=== PATIENT | female | born 1955 | race Caucasian/White ===

== ENCOUNTER 2016-08-02 11:23 | Emergency (ER) | payer SELFPAY ==
[~2016-08-02] VITALS: Wt 87.5 kg
[2016-08-02] MEDS ORDERED: ACET1TAB40 PO (12:25)
[2016-08-02] MEDS ORDERED: GENT5DRO28 RIGHT EYE (12:25)
--- NOTE | 2016-08-02 12:29 | ERD ---
ER Documentation Chief Complaint Date/Time DATE: 08/02/16 TIME: 12:27 Chief Complaint right eye pain and drainage x4days HPI This 61-year-old female complains of right eye pain and irritation for last 4 days. It started while she is sleeping. She denies any contact lenses. She denies any visual field deficits or visual changes except for some mild photophobia due to pain. She denies any cough, shortness of breath or chest pain. ROS All systems reviewed and are negative except as per history of present illness. Medications Home Meds Active Scripts Acetaminophen with Codeine (Acetaminophen-Cod #3 Tablet) 1 Each Tablet, 1 TAB PO Q6H, #12 TAB Prov:CONNIE MARCIAL MD 08/02/16 Gentamicin Sulfate* (Gentamicin Sulfate* Ophth) 0.3% - 5 Ml Drops, 1 DROP RIGHT EYE Q4 for 7 Days, EA Prov:CONNIE MARCIAL MD 08/02/16 Allergies Allergies: Coded Allergies: No Known Allergy (Unverified , 08/02/16) PMhx/Soc Medical and Surgical Hx: pt denies Medical Hx, pt denies Surgical Hx Hx Alcohol Use: No Hx Substance Use: No Hx Tobacco Use: No Physical Exam Vitals Vital Signs Date Time Temp Pulse Resp B/P Pulse Ox O2 Delivery O2 Flow Rate FiO2 08/02/16 11:25 97.0 83 20 179/108 97 Physical Exam Const: [] Alert, [id number]. Head: Atraumatic Eyes: Normal Conjunctiva. There is approximately 2 mm corneal ulcer on the cornea. The chambers appears normal. PERRLA and extraocular movements intact. Visual acuity is 20/30 bilaterally. ENT: Normal External Ears, Nose and Mouth. Neck: Full range of motion..~ No meningismus. Resp: Clear to auscultation bilaterally Cardio: Regular rate and rhythm, no murmurs Abd: Soft, non tender, non distended. Normal bowel sounds Skin: No petechiae or rashes Back: No midline or flank tenderness Ext: No cyanosis, or edema Neur: Awake and alert Psych: Normal Mood and Affect Results 24 hrs Current Medications Medications (Trade) Dose Ordered Sig/Jeff Route PRN Reason Start Time Stop Time Status Last Admin Dose Admin Tetracaine HCl (Tetracaine 0.5% Oph) 1 drop ONCE ONCE RIGHT EYE 08/02/16 12:30 1/6/17 12:31 Fluorescein Sodium (Nddge-Y-Mkixm) 1 strip ONCE ONCE RIGHT EYE 08/02/16 12:30 08/02/16 12:31 Gentamicin Sulfate (Gentamicin 0.3% Oph Drop) 1 drop ONCE ONCE RIGHT EYE 08/02/16 12:30 08/02/16 12:31 08/02/16 12:16 Ibuprofen (Motrin) 600 mg ONCE ONCE PO 08/02/16 12:30 08/02/16 12:31 Procedures/MDM Patient presents with signs and symptoms of a small corneal ulcer on the anterior cornea centrally. She will be treated with gentamicin ophthalmic solution, Tylenol 3 and instructions to follow-up with ophthalmology this week. She should return for visual field deficits, fevers, pain with eye movements, facial swelling, new or worsening symptoms with primary doctor this week. Signs and symptoms are not suggestive of acute blood,, retinal artery ischemia, arthritis, orbital cellulitis. There is no evidence of foreign body or dendritic lesions either. Departure Diagnosis: Primary Impression: Corneal ulcer of right eye Condition: Stable Patient Instructions: Corneal Ulcer Referrals: [facility] Hours: Mon - Fri 9:00 AM - 5:00 PM Additional Instructions: Va al [place] doctor/ specialista para mas evaluacon en el proximo torres. posiblemente necesita autorizado de [place] doctor primario para specialista. Regresa para fiebre, o mas o nueva simptomas. CONNIE MARCIAL MD Aug 02, 2016 12:28
[2016-08-02] MEDS ORDERED: FLUORESCEIN STRIP RIGHT EYE ONE (12:30)
[2016-08-02] MEDS ORDERED: IBUPROFEN 600 MG TAB PO ONE (12:30)
[2016-08-02] MEDS ORDERED: GENTAMICIN 0.3% 5 ML OPH RIGHT EYE ONE (12:30)
[2016-08-02] MEDS ORDERED: TETRACAINE 0.5% 15 ML OPH RIGHT EYE ONE (12:30)
== END 2016-08-02 13:30 | disposition home or self-care (01) ==
LOC: FTE 11:23
DX: H16.001 Unspecified corneal ulcer, right eye (principal)
CPT/HCPCS: 99284

== ENCOUNTER 2016-12-29 07:48 | Emergency (ER) | payer OTHER ==
[~2016-12-29] VITALS: Wt 72.7 kg
[~2016-12-29 07:48] MED LIST: ACET1TAB40 PO; GENT5DRO28 RIGHT EYE
[2016-12-29] MEDS ORDERED: LIDOCAINE/MYLANTA 40 ML BTL PO STA (07:56)
[2016-12-29] MEDS ORDERED: KETOROLAC 15 MG INJ IV STA (07:56)
[2016-12-29] MEDS ORDERED: ONDANSETRON 4 MG INJ IV STA (07:56)
[2016-12-29] MEDS ORDERED: SOD CHLORIDE 0.9% 500 ML IV STA (07:56)
[2016-12-29] MEDS ORDERED: BELLADONNA/PHENOBARBITAL TAB PO STA (07:56)
[2016-12-29 08:28] LABS: ADD SCAN DIFF NO
[2016-12-29 08:34] LABS: BASOPHILS % 0.1 % (0.0-2.0); HEMATOCRIT 33.9 % (37.0-47.0); HEMOGLOBIN 10.9 g/dl (12.0-16.0); LYMPHOCYTES # 0.9 10^3/ul (0.8-2.9); LYMPHOCYTES % 11.4 % (15.0-51.0); MEAN CORPUSCULAR HEMOGLOBIN 26.8 pg (29.0-33.0); MEAN CORPUSCULAR HGB CONC 32.2 g/dl (32.0-37.0); MEAN CORPUSCULAR VOLUME 83.5 fl (82.0-101.0); MEAN PLATELET VOLUME 9.9 fl (7.4-10.4); MONOCYTE # 0.3 10^3/ul (0.3-0.9); MONOCYTES % 4.2 % (0.0-11.0); NEUTROPHIL # 6.2 10^3/ul (1.6-7.5); NEUTROPHILS % 83.5 % (39.0-77.0); PLATELET COUNT 337 10^3/UL (140-415); RED BLOOD COUNT 4.06 10^6/ul (4.20-5.40); RED CELL DISTRIBUTION WIDTH 14.2 % (11.5-14.5); WHITE BLOOD COUNT 7.5 10^3/ul (4.8-10.8)
--- NOTE | 2016-12-29 08:36 | ERD ---
ER Documentation Chief Complaint Date/Time DATE: 12/29/16 TIME: 08:34 Chief Complaint abd pain, n/v after eating [place] at [employer] yest HPI 61-year-old woman complaining of diffuse abdominal cramping, nausea, multiple episodes of vomiting 2 days. Vomiting has been nonbloody nonbilious and not associated with diarrhea. She has had no blood per rectum or melena, no fevers or chills, no chest pain or shortness of breath, no dysuria. She states symptoms began shortly after eating food from [employer]. ROS All systems reviewed and are negative except as per history of present illness. Medications Home Meds Active Scripts Ibuprofen* (Motrin*) 600 Mg Tab, 600 MG PO Q8 for PAIN, #30 TAB Prov:CHANDLER GONZALES MD 12/29/16 Cephalexin* (Keflex*) 500 Mg Capsule, 500 MG PO QID for 5 Days, CAP Prov:CHANDLER GONZALES MD 12/29/16 Ondansetron Hcl* (Zofran*) 4 Mg Tablet, 4 MG PO Q8H Y for NAUSEA AND/OR VOMITING , #15 TAB Prov:CHANDLER GONZALES MD 12/29/16 Acetaminophen with Codeine (Acetaminophen-Cod #3 Tablet) 1 Each Tablet, 1 TAB PO Q6H, #12 TAB Prov:CONNIE MARCIAL MD 08/02/16 Gentamicin Sulfate* (Gentamicin Sulfate* Ophth) 0.3% - 5 Ml Drops, 1 DROP RIGHT EYE Q4 for 7 Days, EA Prov:CONNIE MARCIAL MD 08/02/16 Allergies Allergies: Coded Allergies: No Known Allergy (Unverified , 08/02/16) PMhx/Soc Obesity, hypertension Medical and Surgical Hx: pt denies Medical Hx, pt denies Surgical Hx Hx Psychiatric Problems: No Hx Miscellaneous Medical Probl: No Hx Alcohol Use: No Hx Substance Use: No Hx Tobacco Use: No Smoking Status: Never smoker FmHx Family History: No diabetes Physical Exam Vitals Vital Signs Date Time Temp Pulse Resp B/P Pulse Ox O2 Delivery O2 Flow Rate FiO2 12/29/16 10:02 78 11 152/86 96 Room Air 12/29/16 08:21 102 17 152/90 96 Room Air 12/29/16 07:49 97.4 103 24 159/91 97 Physical Exam GENERAL: Well-developed, well-nourished, nauseous, afebrile HEENT: Dry mucous membranes, pink conjunctiva, no cervical spine tenderness or step-off deformities, no goiter, no jaundice or icterus, extraocular movements intact without pain. No submandibular induration, and no pharyngeal erythema NEURO: Alert and oriented 3, cranial nerves II through XII intact bilaterally, pupils equal round reactive to light, no focal deficits or facial asymmetry, sensation intact distally Strength 5/5 in upper and lower extremities bilaterally CARDIAC: Regular rate and rhythm, no murmurs rubs or gallops LUNGS: Clear bilaterally no wheezing crackles or stridor ABDOMEN: Soft nontender, no guarding, no rigidity, no rebound, no psoas sign no obturator sign. Normoactive bowel sounds SKIN: Warm and dry to touch, no abrasions, contusions, or hematomas, no lacerations, no ecchymosis, no target lesions, and without ulcers EXTREMITIES: No clubbing cyanosis or edema, calves are bilaterally symmetrical, no Homans sign, no popliteal cord sign. Distal pulses equal and bilateral PSYCH: Normal affect without agitation or irritability Result Diagram: 12/29/16 0800 12/29/16 0800 Results 24 hrs Laboratory Tests Test 12/29/16 08:00 12/29/16 09:30 White Blood Count 7.510^3/ul Red Blood Count 4.0610^6/ul Hemoglobin 10.9g/dl Hematocrit 33.9% Mean Corpuscular Volume 83.5fl Mean Corpuscular Hemoglobin 26.8pg Mean Corpuscular Hemoglobin Concent 32.2g/dl Red Cell Distribution Width 14.2% Platelet Count 72392^3/UL Mean Platelet Volume 9.9fl Neutrophils % 83.5% Lymphocytes % 11.4% Monocytes % 4.2% Eosinophils % 0.0% Basophils % 0.1% Nucleated Red Blood Cells % 0.0/100WBC Neutrophils # 6.210^3/ul Lymphocytes # 0.910^3/ul Monocytes # 0.310^3/ul Eosinophils # 0.010^3/ul Basophils # 0.010^3/ul Nucleated Red Blood Cells # 0.010^3/ul Prothrombin Time 13.2Sec Prothrombin Time Ratio 1.0 INR International Normalized Ratio 1.00 Sodium Level 144mmol/L Potassium Level 3.5mmol/L Chloride Level 106mmol/L Carbon Dioxide Level 24mmol/L Anion Gap 18 Blood Urea Nitrogen 20mg/dl Creatinine 0.57mg/dl Glucose Level 154mg/dl Calcium Level 9.3mg/dl Total Bilirubin 0.3mg/dl Direct Bilirubin 0.00mg/dl Indirect Bilirubin 0.3mg/dl Aspartate Amino Transf (AST/SGOT) 29IU/L Alanine Aminotransferase (ALT/SGPT) 47IU/L Alkaline Phosphatase 112IU/L Troponin I < 0.012ng/ml Total Protein 8.7g/dl Albumin 5.0g/dl Globulin 3.70g/dl Albumin/Globulin Ratio 1.35 Lipase 46U/L Urine Color LT. YELLOW Urine Clarity SLIGHTLY CLOUDY Urine pH 6.0 Urine Specific [place] >=1.030 Urine Ketones TRACE Urine Nitrite NEGATIVE Urine Bilirubin NEGATIVE Urine Urobilinogen 0.2 E.U./dL Urine Leukocyte Esterase NEGATIVE Urine Microscopic RBC 0-2/HPF Urine Microscopic WBC 5-10/HPF Urine Squamous Epithelial Cells FEW Urine Bacteria MANY Urine Hemoglobin 1+ Urine Glucose NEGATIVE% Urine Total Protein 4+ Current Medications Medications (Trade) Dose Ordered Sig/Jeff Route PRN Reason Start Time Stop Time Status Last Admin Dose Admin Sodium Chloride (NS) 500 ml @ 500 mls/hr Q1H STAT IV 12/29/16 07:56 12/29/16 08:55 DC 12/29/16 08:15 Ondansetron HCl (Zofran Inj) 4 mg ONCE STAT IV 12/29/16 07:56 12/29/16 07:57 DC 12/29/16 08:14 Miscellaneous Medication (Gi Cocktail (2)) 40 ml ONCE STAT PO 12/29/16 07:56 12/29/16 07:57 DC 12/29/16 08:15 Belladonna/ Phenobarbital () 2 tab ONCE STAT PO 12/29/16 07:56 12/29/16 07:57 DC 12/29/16 08:14 Ketorolac Tromethamine 15 mg 15 mg ONCE STAT IV 12/29/16 07:56 12/29/16 07:57 DC 12/29/16 08:15 Ceftriaxone Sodium (Rocephin) 50 ml @ 100 mls/hr ONCE ONCE IVPB 12/29/16 10:30 12/29/16 10:59 DC 12/29/16 10:32 Procedures/MDM IV line was established patient was placed on classroom monitor rhythm strip revealed a sinus rhythm at about 90 bpm with upright P and T waves. Patient was afebrile. EKG performed, read by me: 89 bpm, normal sinus rhythm, normal axis, no acute ST segment changes, narrow QRS complex, with good R-wave progression in precordial leads. I administered 500 mL normal saline intravenously, Zofran 4 mg IV, Toradol 15 mg IV, and GI cocktail 50 cc p.o. with good response. CBC was unremarkable, electrolytes revealed dehydration with a BUN/creatinine of 20/0.6, liver function tests were normal, troponin was negative. Urine analysis was positive for infection. I administered ceftriaxone 1 g IV. Differential diagnoses considered, included but not limited to acute coronary syndrome, pulmonary embolism, aortic dissection, abdominal aortic aneurysm, sepsis, stroke, meningitis, encephalitis, pneumonia, appendicitis, cholecystitis , bowel obstruction, pyelonephritis, nephrolithiasis, cystitis, as well as metabolic, hematologic, and electrolyte abnormalities. As well as abscess, cellulitis, fractures, and dislocations. Patient feels much better at this time, and vital signs are normal, symptoms have improved. I did give strict instructions to return to the ED if symptoms continue or worsen, patient will otherwise follow-up with primary care physician. Patient understood instructions and agreed to plan. Disclaimer: Inadvertent spelling or grammatical errors are likely due to EHR/ dictation software use and do not reflect on the overall quality of patient care. Departure Diagnosis: Primary Impression: UTI (urinary tract infection) Urinary tract infection type: acute cystitis Hematuria presence: without hematuria Qualified Code: N30.00 - Acute cystitis without hematuria Additional Impressions: Nausea and vomiting Vomiting type: unspecified Vomiting Intractability: non-intractable Qualified Code: R11.2 - Non-intractable vomiting with nausea, unspecified vomiting type Abdominal pain Abdominal location: lower abdomen, unspecified Qualified Code: R10.30 - Lower abdominal pain Dehydration Condition: Good CHANDLER GONZALES MD Dec 29, 2016 08:35
--- NOTE | 2016-12-29 08:44 | RADRPT ---
PROCEDURE: CT Abdomen and Pelvis without contrast. CLINICAL INDICATION: Abdominal pain TECHNIQUE: CT scan of the abdomen and pelvis was performed on a multidetector high-resolution CT s Purple without intravenous contrast. Coronal and sagittal reformatted images were obtained from the axial source images. Images were reviewed on a high-resolution PACS workstation. The total exam CTD I equals 21mGy and the total exam DLP equals 1244mGy-cm. One or more of the following dose reduction techniques were used: Automated exposure control, Adjustment of the mA and/or kV according to patie nt size, and/or use of iterative reconstruction technique. COMPARISON: None. FINDINGS: Evaluation of the solid organs is limited given the lack of intravenous contrast administration. Bibasilar atelectasis and scarring. Hypoattenuation of the liver. No pancreatic ductal dilatation. The spleen and adrenals are unremar kable. No focal pericholecystic inflammatory changes. No hydronephrosis. No renal or ureteral stone. No bowel obstruction. Normal-caliber appendix. Colonic diverticulosis. No significant retroperitoneal lymphadenopathy, ascites or evidence of pneumoperitoneum. Small focus of air in the bladder. Degenerative changes of the spine. IMPRESSION: No renal or ureteral stone. No evidence of bowel obstruction. Normal-caliber appendix. Hepatic steatosis. Colonic diverticulosis. Small focus of air in the bladder. Recommend correlation for recent instrumentation versus cystitis . RPTAT: AA .Quang Matias MD, Date Time Electronically viewed and signed by .Quang Matias MD, MD on 12/29/2016 08:44 .T/
[2016-12-29 09:07] LABS: PROTIME 13.2 Sec (12.2-14.2)
[2016-12-29 09:09] LABS: ALANINE AMINOTRANSFERASE 47 IU/L (13-69); ALBUMIN/GLOBULIN RATIO 1.35; ALKALINE PHOSPHATASE 112 IU/L (42-121); ANION GAP 18 (8-16); ASPARTATE AMINO TRANSFERASE 29 IU/L (15-46); BILIRUBIN,INDIRECT 0.3 mg/dl (0-1.1); BILIRUBIN,TOTAL 0.3 mg/dl (0.2-1.3); BLOOD UREA NITROGEN 20 mg/dl (7-20); CALCIUM 9.3 mg/dl (8.4-10.2); CARBON DIOXIDE 24 mmol/L (21-31); CHLORIDE 106 mmol/L (97-110); CREATININE 0.57 mg/dl (0.44-1.00); GLUCOSE 154 mg/dl (70-220); POTASSIUM 3.5 mmol/L (3.5-5.1); SODIUM 144 mmol/L (135-144); TOTAL PROTEIN 8.7 g/dl (6.1-8.1)
[2016-12-29 09:18] LABS: TROPONIN-I < 0.012 ng/ml (0.00-0.12)
[2016-12-29 09:58] LABS: ADD UMIC YES; URINE BILIRUBIN (Dip) NEGATIVE (NEGATIVE); URINE BLOOD (Dip) 1+ (NEGATIVE); URINE COLOR LT. YELLOW (YELLOW); URINE GLUCOSE (Dip) NEGATIVE (NEGATIVE); URINE KETONES (Dip) TRACE (NEGATIVE); URINE LEUKOCYTE ESTERASE (Dip) NEGATIVE (NEGATIVE); URINE NITRITE (Dip) NEGATIVE (NEGATIVE); URINE TOTAL PROTEIN (Dip) 4+ (NEGATIVE); URINE UROBILINOGEN (Dip) 0.2 E.U./dL (0.1-1.0)
[2016-12-29 10:09] LABS: URINE RBCS 0-2 /HPF (0)
[2016-12-29 10:10] LABS: BACTERIA,URINE MANY; SQUAMOUS EPITHELIAL CELL,UR FEW
[2016-12-29] MEDS ORDERED: CEFTRIAXONE 1 GM/50 ML (PMX) 50 ML IVPB ONE (10:30)
[2016-12-29] MEDS ORDERED: ONDA4TAB8 PO (10:47)
[2016-12-29] MEDS ORDERED: IBUP-1542 PO (10:47)
[2016-12-29] MEDS ORDERED: CEPH-443 PO (10:47)
[2016-12-29 11:12] VITALS: BP 158/88; PULSE 82; RESP 16
== END 2016-12-29 11:12 | disposition home or self-care (01) ==
LOC: E/R 07:48
DX: N30.00 Acute cystitis without hematuria (principal); R40.2252 Coma scale, best verbal response, oriented, at arrival to emergency department; R11.2 Nausea with vomiting, unspecified; R10.30 Lower abdominal pain, unspecified; E86.0 Dehydration; R40.2142 Coma scale, eyes open, spontaneous, at arrival to emergency department; R40.2362 Coma scale, best motor response, obeys commands, at arrival to emergency department
CPT/HCPCS: 36415; 74176; 80053; 81001; 83690; 84484; 85025; 85610; 93005; 96374; 96375; J0696; J1885; J2405; J7040; Z7502; Z7610; A4310

== ENCOUNTER 2018-05-13 01:18 | Inpatient (IN) | END 2018-05-14 18:15 | disposition home or self-care (01) | DRG 392 ==